=== PATIENT | female | born 1980 | race African-American/Black ===

== ENCOUNTER 2022-04-02 10:59 | Emergency (ER) | payer SELFPAY ==
[~2022-04-02] VITALS: Ht 170.2 cm; Wt 102.0 kg
[2022-04-02 11:30] LABS: BASOPHILS % 0.6 % (0.0-2.0); EOSINOPHILS % 1.6 % (0.0-5.0); HEMATOCRIT. 34.9 % (36.0-48.0); HEMOGLOBIN. 11.3 g/dL (12.0-16.0); LYMPHOCYTES % 38.7 % (20.0-50.0); MEAN CORPUSCULAR HEMOGLOBIN 28.6 pg (28.0-32.0); MEAN CORPUSCULAR VOLUME 88.5 fL (81.0-99.0); MEAN PLATELET VOLUME 7.4 fl (7.4-10.4); MONOCYTES % 6.7 % (2.0-8.0); NEUTROPHILS % 52.4 % (40.0-76.0); PLATELET 331 x1000/uL (130-400); RED BLOOD CELL COUNT 3.94 mill/uL (4.2-5.4); RED CELL DISTRIBUTION WIDTH 16.9 % (11.6-14.6)
[2022-04-02 11:36] LABS: CHLORIDE 105 mEq/L (98-107)
[2022-04-02 11:45] LABS: CREATINE KINASE 252 IU/L (26-192); ETHANOL BLOOD 42 mg/dL
[2022-04-02 12:06] VITALS: BP 185/78
[2022-04-02 12:06] LABS: HCG SCREEN NEGATIVE
[2022-04-02] MEDS ORDERED: HALOPERIDOL LACTATE 5MG/ML VIAL IM ONE (12:15)
== END 2022-04-02 13:00 | disposition left against medical advice (07) ==
LOC: EDBD 11:39 → ER 11:39
DX: T50.7X1A Poisoning by analeptics and opioid receptor antagonists, accidental (unintentional), initial encounter (principal); X58.XXXA Exposure to other specified factors, initial encounter
CPT/HCPCS: 36415; 80053; 80307; 80320; 80329; 82550; 82962; 84703; 85025; 93005; 96372; 99291; J1630; G0480

== ENCOUNTER 2022-07-26 21:39 | Emergency (ER) | payer MEDICAID ==
[~2022-07-26] VITALS: Ht 167.6 cm; Wt 82.0 kg
[2022-07-26 21:46] VITALS: BP 164/82
[2022-07-27] MEDS ORDERED: TOPUD MT (02:07)
== END 2022-07-27 02:26 | disposition home or self-care (01) ==
LOC: ER 21:39
DX: M79.646 Pain in unspecified finger(s) (principal); F20.9 Schizophrenia, unspecified; F31.9 Bipolar disorder, unspecified; I10 Essential (primary) hypertension; G40.909 Epilepsy, unspecified, not intractable, without status epilepticus
CPT/HCPCS: 99283

== ENCOUNTER 2022-11-09 04:13 | Emergency (ER) | payer MEDICAID ==
[~2022-11-09] VITALS: Ht 162.6 cm; Wt 82.0 kg
[~2022-11-09 04:13] MED LIST: TOPUD MT
[2022-11-09 04:15] VITALS: BP 127/78
== END 2022-11-09 05:28 | disposition left against medical advice (07) ==
LOC: ER 04:13
DX: Z53.21 Procedure and treatment not carried out due to patient leaving prior to being seen by health care provider (principal)
CPT/HCPCS: 99281

== ENCOUNTER 2023-10-20 17:16 | Emergency (ER) | payer BC, MEDICAID ==
[~2023-10-20] VITALS: Ht 167.6 cm; Wt 104.0 kg
[2023-10-20 17:22] VITALS: O2SAT 100
[2023-10-20 17:25] VITALS: TEMP 98.4
[2023-10-20] MEDS ORDERED: IBUP-2030 MT (19:17)
[2023-10-20] MEDS: ONDANSETRON HCL 4MG/2ML INJ IM STA (19:18)
[2023-10-20] MEDS: ACETAMINOPHEN 325MG TABLET PO STA (19:18)
[2023-10-20 20:45] VITALS: BP 175/103; PULSE 112; RESP 20
[2023-10-20] MEDS: HYDROCODONE/ACETAMINOPHEN 10/325MG TABLET PO ONE (20:45)
[2023-10-20] MEDS: CLONIDINE 0.1MG TABLET PO ONE (20:45)
== END 2023-10-21 01:13 | disposition home or self-care (01) ==
LOC: ER 17:16
DX: S06.0X0A Concussion without loss of consciousness, initial encounter (principal); F32.9 Major depressive disorder, single episode, unspecified; F20.9 Schizophrenia, unspecified; X58.XXXA Exposure to other specified factors, initial encounter; Y93.89 Activity, other specified; Y92.89 Other specified places as the place of occurrence of the external cause; Y99.8 Other external cause status
CPT/HCPCS: 99285; 70450; 70486; 96372; J2405

== ENCOUNTER 2023-12-17 02:32 | Emergency (ER) | payer BC ==
[~2023-12-17] VITALS: Ht 165.1 cm; Wt 126.6 kg
[~2023-12-17 02:32] MED LIST changes: +IBUP-2030 MT
[2023-12-17 03:20] VITALS: BP 170/105; PULSE 99; RESP 14; TEMP 97.3; O2SAT 98
[2023-12-17 03:30] LABS: BASOPHILS % 0.9 % (0.0-2.0); HEMATOCRIT. 41.3 % (36.0-48.0); HEMOGLOBIN. 13.9 g/dL (12.0-16.0); LYMPHOCYTES % 34.9 % (20.0-50.0); MEAN CORPUSCULAR HEMOGLOBIN 31.4 pg (28.0-32.0); MEAN CORPUSCULAR HGB CONC 33.7 g/dL (31.0-37.0); MEAN CORPUSCULAR VOLUME 93.1 fL (81.0-99.0); MEAN PLATELET VOLUME 8.1 fl (7.4-10.4); MONOCYTES % 6.9 % (2.0-8.0); NEUTROPHILS % 56.3 % (40.0-76.0); PLATELET 242 x1000/uL (130-400); RED BLOOD CELL COUNT 4.43 mill/uL (4.2-5.4); RED CELL DISTRIBUTION WIDTH 14.5 % (11.6-14.6); WHITE BLOOD COUNT 8.4 x1000/uL (4.5-11.0)
[2023-12-17 03:55] LABS: HCG SCREEN NEGATIVE
[2023-12-17 04:00] LABS: CHLORIDE 105 mEq/L (98-107); POTASSIUM 4.1 mEq/L (3.5-5.1); SODIUM 138 mEq/L (136-145)
[2023-12-17 04:01] LABS: CALCIUM 10.4 mg/dL (8.7-10.4); CARBON DIOXIDE 25 mEq/L (21-32)
[2023-12-17 04:06] LABS: CREATININE 0.9 mg/dL (0.6-1.0); GLUCOSE 105 mg/dL (70-105); UREA NITROGEN BLOOD 10 mg/dL (9-23)
[2023-12-17 04:07] LABS: ALANINE AMINOTRANSFERASE 12 IU/L (10-49); ASPARTATE AMINOTRANSFERASE 18 IU/L (<34)
[2023-12-17 04:08] LABS: ALBUMIN 4.7 g/dL (3.2-4.8); BILIRUBIN TOTAL 0.3 mg/dL (0.1-1.0); PROTEIN TOTAL 8.2 g/dL (6.0-8.3)
== END 2023-12-17 04:42 | disposition left against medical advice (07) ==
LOC: ER 02:32
DX: R11.2 Nausea with vomiting, unspecified (principal); Z53.21 Procedure and treatment not carried out due to patient leaving prior to being seen by health care provider
CPT/HCPCS: 36415; 80053; 84703; 85025

== ENCOUNTER 2024-03-16 10:00 | Emergency (ER) | payer BC ==
[~2024-03-16] VITALS: Ht 167.6 cm; Wt 95.0 kg
[2024-03-16 10:02] VITALS: O2SAT 99
[2024-03-16 11:00] VITALS: BP 148/68; PULSE 78; RESP 17; TEMP 98.8
== END 2024-03-16 11:10 | disposition home or self-care (01) ==
LOC: ER 10:10
DX: F19.10 Other psychoactive substance abuse, uncomplicated (principal); F32.A Depression, unspecified; I10 Essential (primary) hypertension; Z98.890 Other specified postprocedural states; Z86.59 Personal history of other mental and behavioral disorders
CPT/HCPCS: 99283

== ENCOUNTER 2024-03-26 22:39 | Emergency (ER) | payer BC, MEDICAID ==
[~2024-03-26] VITALS: Ht 172.7 cm; Wt 113.0 kg
[2024-03-26 22:46] VITALS: O2SAT 99
[2024-03-27] MEDS: ACETAMINOPHEN 325MG TABLET PO STA (02:15)
[2024-03-27] MEDS: ONDANSETRON HCL 4MG/2ML INJ IM STA (02:15)
[2024-03-27 02:39] LABS: BASOPHILS % 0.4 % (0.0-2.0); EOSINOPHILS % 1.4 % (0.0-5.0); HEMATOCRIT. 39.2 % (36.0-48.0); HEMOGLOBIN. 12.9 g/dL (12.0-16.0); LYMPHOCYTES % 38.2 % (20.0-50.0); MEAN CORPUSCULAR HGB CONC 32.9 g/dL (31.0-37.0); MEAN CORPUSCULAR VOLUME 94.5 fL (81.0-99.0); MEAN PLATELET VOLUME 7.8 fl (7.4-10.4); MONOCYTES % 6.3 % (2.0-8.0); NEUTROPHILS % 53.7 % (40.0-76.0); PLATELET 250 x1000/uL (130-400); RED BLOOD CELL COUNT 4.15 mill/uL (4.2-5.4); RED CELL DISTRIBUTION WIDTH 14.3 % (11.6-14.6); WHITE BLOOD COUNT 7.6 x1000/uL (4.5-11.0)
[2024-03-27 02:48] LABS: CLARITY URINE CLEAR (CLEAR); COLOR URINE YELLOW (YELLOW); GLUCOSE URINE NEGATIVE (NEGATIVE); KETONES URINE NEGATIVE (NEGATIVE); LEUKOCYTE ESTERASE URINE NEGATIVE (NEGATIVE); NITRITE URINE NEGATIVE (NEGATIVE); OCCULT BLOOD URINE 1+ (NEGATIVE); PROTEIN URINE NEGATIVE (NEGATIVE); SPECIFIC GRAVITY URINE 1.005 (1.005-1.030); UROBILINOGEN URINE 0.2 E.U./dL (0.2-1.0)
[2024-03-27 02:49] LABS: CHLORIDE 106 mEq/L (98-107); POTASSIUM 4.1 mEq/L (3.5-5.1); SODIUM 138 mEq/L (136-145)
[2024-03-27 02:50] LABS: CALCIUM 9.1 mg/dL (8.7-10.4); CARBON DIOXIDE 31 mEq/L (21-32)
[2024-03-27 02:55] LABS: GLUCOSE 97 mg/dL (70-105); UREA NITROGEN BLOOD 7 mg/dL (9-23)
[2024-03-27 03:06] LABS: BACTERIA URINE NONE SEEN; RBC URINE NONE SEEN /hpf (0-2); SQUAMOUS EPITHELIAL CELL URINE NONE SEEN /lpf (RARE/1+); WBC URINE 0-2 /hpf (0-2)
[2024-03-27] MEDS ORDERED: NAPR-681 PO (03:20)
[2024-03-27 04:03] VITALS: BP 125/76; PULSE 92; RESP 18; TEMP 37.00296; O2SAT 99
== END 2024-03-27 04:04 | disposition home or self-care (01) ==
LOC: ER 22:39
DX: R51.9 Headache, unspecified (principal); R10.9 Unspecified abdominal pain; F32.A Depression, unspecified; I10 Essential (primary) hypertension; Z98.890 Other specified postprocedural states
CPT/HCPCS: 99283; 80048; 81003; 81025; 83690; 85025; 36415; 96372; J2405

== ENCOUNTER 2024-05-20 11:27 | Emergency (ER) | payer MEDICAID ==
[~2024-05-20] VITALS: Ht 165.1 cm; Wt 124.0 kg
[~2024-05-20 11:27] MED LIST changes: +NAPR-681 PO
[2024-05-20 11:29] VITALS: O2SAT 99
[2024-05-20 11:37] VITALS: BP 182/90; PULSE 92; RESP 16; TEMP 98; O2SAT 99
[2024-05-20] MEDS ORDERED: LISI20TA31 MT (11:39)
[2024-05-20] MEDS ORDERED: LABE100T9 MT (11:39)
[2024-05-20] MEDS ORDERED: AMLO5TAB88 MT (11:39)
== END 2024-05-20 11:47 | disposition home or self-care (01) ==
LOC: ER 11:27
DX: I10 Essential (primary) hypertension (principal); F32.A Depression, unspecified; Z98.890 Other specified postprocedural states; Z76.0 Encounter for issue of repeat prescription; Z79.899 Other long term (current) drug therapy
CPT/HCPCS: 99281

== ENCOUNTER 2024-06-20 19:15 | Emergency (ER) | payer BC, MEDICAID ==
[~2024-06-20] VITALS: Ht 167.6 cm; Wt 82.0 kg
[~2024-06-20 19:15] MED LIST changes: +AMLO5TAB88 MT; +LABE100T9 MT; +LISI20TA31 MT
[2024-06-20 19:22] VITALS: O2SAT 98
[2024-06-20 21:11] LABS: *AMPHETAMINES SCREEN URINE PRESUMPTIVE POSITIVE (NEGATIVE); *BENZODIAZEPINES SCREEN URINE NEGATIVE (NEGATIVE)
[2024-06-20 21:11] LABS: BASOPHILS % 0.5 % (0.0-2.0); EOSINOPHILS % 0.4 % (0.0-5.0); HEMATOCRIT. 31.4 % (36.0-48.0); HEMOGLOBIN. 10.5 g/dL (12.0-16.0); LYMPHOCYTES % 34.1 % (20.0-50.0); MEAN CORPUSCULAR HEMOGLOBIN 31.4 pg (28.0-32.0); MEAN CORPUSCULAR HGB CONC 33.5 g/dL (31.0-37.0); MEAN CORPUSCULAR VOLUME 93.7 fL (81.0-99.0); MEAN PLATELET VOLUME 7.6 fl (7.4-10.4); MONOCYTES % 7.6 % (2.0-8.0); NEUTROPHILS % 57.4 % (40.0-76.0); PLATELET 379 x1000/uL (130-400); RED BLOOD CELL COUNT 3.35 mill/uL (4.2-5.4); RED CELL DISTRIBUTION WIDTH 13.4 % (11.6-14.6); WHITE BLOOD COUNT 6.4 x1000/uL (4.5-11.0)
[2024-06-20 21:12] LABS: *BARBITURATES SCREEN URINE NEGATIVE (NEGATIVE); *COCAINE SCREEN URINE NEGATIVE (NEGATIVE); CANNABINOID URINE SCREEN PRESUMPTIVE POSITIVE (NEGATIVE); METHADONE URINE SCREEN NEGATIVE (NEGATIVE); OPIATES URINE SCREEN NEGATIVE (NEGATIVE); PHENCYCLIDINE URINE SCREEN NEGATIVE (NEGATIVE)
[2024-06-20 21:13] LABS: CHLORIDE 109 mEq/L (98-107); POTASSIUM 3.7 mEq/L (3.5-5.1); SODIUM 140 mEq/L (136-145)
[2024-06-20 21:13] LABS: CLARITY URINE CLEAR (CLEAR); COLOR URINE YELLOW (YELLOW); ECSTASY MDMA SCREEN URINE CONF.TEST INDICATED (NEGATIVE); GLUCOSE URINE NEGATIVE (NEGATIVE); KETONES URINE NEGATIVE (NEGATIVE); LEUKOCYTE ESTERASE URINE 3+ (NEGATIVE); NITRITE URINE NEGATIVE (NEGATIVE); OCCULT BLOOD URINE 3+ (NEGATIVE); PH URINE 6.5 (4.5-8.0); PROTEIN URINE NEGATIVE (NEGATIVE); SPECIFIC GRAVITY URINE 1.012 (1.005-1.030); UROBILINOGEN URINE 0.2 E.U./dL (0.2-1.0)
[2024-06-20 21:14] LABS: CARBON DIOXIDE 25 mEq/L (21-32)
[2024-06-20 21:15] LABS: CALCIUM 9.2 mg/dL (8.7-10.4)
[2024-06-20 21:19] LABS: CREATININE 0.9 mg/dL (0.6-1.0); GLUCOSE 105 mg/dL (70-105); UREA NITROGEN BLOOD 6 mg/dL (9-23)
[2024-06-20 21:20] LABS: ETHANOL BLOOD < 10 mg/dL (<10)
[2024-06-20 21:43] LABS: BACTERIA URINE 1+; SQUAMOUS EPITHELIAL CELL URINE 1+ /lpf (RARE/1+)
[2024-06-20 22:14] LABS: HCG SCREEN NEGATIVE
[2024-06-20] MEDS ORDERED: DIVALPROEX SODIUM 250MG ER TABLET PO ONE (22:30)
[2024-06-20] MEDS ORDERED: AMLODIPINE 10MG TABLET PO ONE (22:30)
[2024-06-20] MEDS ORDERED: QUETIAPINE FUMARATE 25MG TABLET PO SCH (22:30)
[2024-06-20] MEDS: DIVALPROEX SODIUM 250MG ER TABLET PO NR (23:26)
[2024-06-20] MEDS: AMLODIPINE 5MG TABLET PO NR (23:27)
[2024-06-20] MEDS: QUETIAPINE FUMARATE 50MG TABLET PO NR (23:29)
[2024-06-20] MEDS: NITROFURANTOIN 100MG M/M CAPSULE PO NR (23:29)
[2024-06-21] MEDS: DIVALPROEX SODIUM 500MG DR TABLET PO SCH (09:00)
[2024-06-21] MEDS: LABETALOL HCL 100MG TABLET PO ONE (09:00)
[2024-06-21] MEDS: LISINOPRIL 20MG TABLET PO SCH (09:00)
[2024-06-21] MEDS: AMLODIPINE 5MG TABLET PO SCH (12:30)
[2024-06-21] MEDS: NITROFURANTOIN 100MG M/M CAPSULE PO SCH (12:30)
[2024-06-21] MEDS ORDERED: LISI20TA31 MT (17:00)
[2024-06-21] MEDS ORDERED: NITR-87 MT (17:00)
[2024-06-21] MEDS ORDERED: AMLO5TAB88 MT (17:00)
[2024-06-21 17:12] VITALS: BP 142/78; PULSE 82; RESP 16; TEMP 37.11408; O2SAT 99
[2024-06-21] MEDS ORDERED: DIVALPROEX SODIUM 500MG DR TABLET PO SCH (21:00)
[2024-06-21] MEDS ORDERED: QUETIAPINE FUMARATE 50MG TABLET PO SCH (21:00)
== END 2024-06-21 18:06 | disposition home or self-care (01) ==
LOC: ER 19:15
DX: R45.851 Suicidal ideations (principal); I10 Essential (primary) hypertension; F32.A Depression, unspecified; F17.200 Nicotine dependence, unspecified, uncomplicated; F12.10 Cannabis abuse, uncomplicated; F15.10 Other stimulant abuse, uncomplicated; Z20.822 Contact with and (suspected) exposure to COVID-19; Z79.899 Other long term (current) drug therapy; Z86.59 Personal history of other mental and behavioral disorders
CPT/HCPCS: 80305; 80048; 81003; 80307; 80329; 80320; 84703; 85025; 36415; 99285; 87426; Z7610 ×2; G0480

== ENCOUNTER 2024-06-23 19:42 | Emergency (ER) | payer BC ==
[~2024-06-23] VITALS: Ht 165.1 cm; Wt 72.0 kg
[~2024-06-23 19:42] MED LIST changes: +NITR-87 MT
[2024-06-23 19:50] VITALS: TEMP 98.8; O2SAT 100
[2024-06-23] MEDS: MAGNESIUM/ALUMINUM HYDROXIDE/SIMETHICONE 30ML UDC PO ONE (20:50)
[2024-06-23 21:21] LABS: BASOPHILS % 0.6 % (0.0-2.0); EOSINOPHILS % 0.7 % (0.0-5.0); HEMATOCRIT. 34.8 % (36.0-48.0); HEMOGLOBIN. 11.4 g/dL (12.0-16.0); LYMPHOCYTES % 45.8 % (20.0-50.0); MEAN CORPUSCULAR HEMOGLOBIN 30.4 pg (28.0-32.0); MEAN CORPUSCULAR HGB CONC 32.8 g/dL (31.0-37.0); MEAN CORPUSCULAR VOLUME 92.8 fL (81.0-99.0); MEAN PLATELET VOLUME 7.4 fl (7.4-10.4); MONOCYTES % 5.6 % (2.0-8.0); NEUTROPHILS % 47.3 % (40.0-76.0); PLATELET 392 x1000/uL (130-400); RED BLOOD CELL COUNT 3.75 mill/uL (4.2-5.4); RED CELL DISTRIBUTION WIDTH 13.9 % (11.6-14.6); WHITE BLOOD COUNT 6.5 x1000/uL (4.5-11.0)
[2024-06-23 21:22] LABS: CHLORIDE 109 mEq/L (98-107); POTASSIUM 3.9 mEq/L (3.5-5.1); SODIUM 139 mEq/L (136-145)
[2024-06-23 21:23] LABS: CARBON DIOXIDE 25 mEq/L (21-32)
[2024-06-23 21:25] LABS: INR 0.9; PROTHROMBIN TIME 10.5 sec (9.6-11.0)
[2024-06-23 21:26] LABS: HCG SCREEN NEGATIVE
[2024-06-23 21:28] LABS: CREATININE 0.9 mg/dL (0.6-1.0); GLUCOSE 103 mg/dL (70-105); TROPONIN I HIGH SENSITIVITY 22 ng/L (3.0-34); UREA NITROGEN BLOOD 8 mg/dL (9-23)
[2024-06-23 21:30] LABS: ALANINE AMINOTRANSFERASE 11 IU/L (10-49); ALBUMIN 4.1 g/dL (3.2-4.8); ASPARTATE AMINOTRANSFERASE 12 IU/L (<34); BILIRUBIN DIRECT < 0.1 mg/dL (<=3.0); BILIRUBIN TOTAL 0.2 mg/dL (0.1-1.0); PROTEIN TOTAL 7.6 g/dL (6.0-8.3)
[2024-06-23 23:26] LABS: TROPONIN I HIGH SENSITIVITY 22 ng/L (3.0-34)
[2024-06-24] MEDS ORDERED: ONDA-239 PO (00:03)
[2024-06-24 00:39] VITALS: BP 140/81; PULSE 97; RESP 20; O2SAT 100
[2024-06-24] MEDS ORDERED: CEFP100T8 MT (09:36)
== END 2024-06-24 00:40 | disposition home or self-care (01) ==
LOC: ER 19:42
DX: K29.70 Gastritis, unspecified, without bleeding (principal); I10 Essential (primary) hypertension; F32.A Depression, unspecified; F12.90 Cannabis use, unspecified, uncomplicated; F15.90 Other stimulant use, unspecified, uncomplicated; Z98.890 Other specified postprocedural states; Z79.899 Other long term (current) drug therapy
CPT/HCPCS: 36415; 71045; 80048; 80076; 84484; 84703; 85025; 93005; 99285

== ENCOUNTER 2024-06-24 01:48 | Emergency (ER) | payer BC ==
[~2024-06-24] VITALS: Ht 167.6 cm; Wt 108.2 kg
[~2024-06-24 01:48] MED LIST changes: +ONDA-239 PO
[2024-06-24 02:08] VITALS: O2SAT 98
[2024-06-24 02:24] LABS: CHLORIDE 107 mEq/L (98-107); POTASSIUM 4.2 mEq/L (3.5-5.1); SODIUM 141 mEq/L (136-145)
[2024-06-24 02:25] LABS: CALCIUM 9.3 mg/dL (8.7-10.4); CARBON DIOXIDE 26 mEq/L (21-32)
[2024-06-24 02:30] LABS: CREATININE 1.2 mg/dL (0.6-1.0); GLUCOSE 134 mg/dL (70-105); UREA NITROGEN BLOOD 10 mg/dL (9-23)
[2024-06-24 02:32] LABS: ACETAMINOPHEN < 2 ug/mL (10-30)
[2024-06-24 04:10] LABS: BASOPHILS % 0.5 % (0.0-2.0); HEMATOCRIT. 36.7 % (36.0-48.0); HEMOGLOBIN. 12.4 g/dL (12.0-16.0); LYMPHOCYTES % 46.8 % (20.0-50.0); MEAN CORPUSCULAR HEMOGLOBIN 31.2 pg (28.0-32.0); MEAN CORPUSCULAR HGB CONC 33.7 g/dL (31.0-37.0); MEAN CORPUSCULAR VOLUME 92.5 fL (81.0-99.0); MEAN PLATELET VOLUME 7.6 fl (7.4-10.4); MONOCYTES % 5.9 % (2.0-8.0); NEUTROPHILS % 45.8 % (40.0-76.0); PLATELET 428 x1000/uL (130-400); RED BLOOD CELL COUNT 3.96 mill/uL (4.2-5.4); RED CELL DISTRIBUTION WIDTH 14.2 % (11.6-14.6); WHITE BLOOD COUNT 7.6 x1000/uL (4.5-11.0)
[2024-06-24 04:14] LABS: ETHANOL BLOOD < 10 mg/dL (<10)
[2024-06-24 04:19] VITALS: BP 139/88; PULSE 62; RESP 18; TEMP 36.72516; O2SAT 97
[2024-06-24 08:18] LABS: HCG SCREEN NEGATIVE
[2024-06-24 08:57] LABS: CLARITY URINE TURBID (CLEAR); COLOR URINE ORANGE (YELLOW); GLUCOSE URINE NEGATIVE (NEGATIVE); KETONES URINE NEGATIVE (NEGATIVE); LEUKOCYTE ESTERASE URINE TRACE (NEGATIVE); NITRITE URINE NEGATIVE (NEGATIVE); OCCULT BLOOD URINE 3+ (NEGATIVE); PH URINE 5.5 (4.5-8.0); PROTEIN URINE 2+ (NEGATIVE); UROBILINOGEN URINE 0.2 E.U./dL (0.2-1.0)
[2024-06-24 09:24] LABS: SQUAMOUS EPITHELIAL CELL URINE 2+ /lpf (RARE/1+)
[2024-06-24 09:25] LABS: BACTERIA URINE 4+; YEAST URINE NONE SEEN
[2024-06-24 09:26] LABS: MUCUS URINE TRACE /lpf (< = 2+)
[2024-06-24 09:33] LABS: *AMPHETAMINES SCREEN URINE PRESUMPTIVE POSITIVE (NEGATIVE); *BARBITURATES SCREEN URINE NEGATIVE (NEGATIVE); *BENZODIAZEPINES SCREEN URINE NEGATIVE (NEGATIVE); *COCAINE SCREEN URINE NEGATIVE (NEGATIVE)
[2024-06-24 09:34] LABS: CANNABINOID URINE SCREEN NEGATIVE (NEGATIVE); ECSTASY MDMA SCREEN URINE CONF.TEST INDICATED (NEGATIVE); METHADONE URINE SCREEN NEGATIVE (NEGATIVE); OPIATES URINE SCREEN NEGATIVE (NEGATIVE); PHENCYCLIDINE URINE SCREEN NEGATIVE (NEGATIVE)
[2024-06-24] MEDS ORDERED: CEFP100T8 MT (09:36)
== END 2024-06-24 10:20 | disposition home or self-care (01) ==
LOC: ER 01:48
DX: R45.851 Suicidal ideations (principal); N39.0 Urinary tract infection, site not specified; F32.A Depression, unspecified; F20.9 Schizophrenia, unspecified; J45.909 Unspecified asthma, uncomplicated; I10 Essential (primary) hypertension; Z79.899 Other long term (current) drug therapy
CPT/HCPCS: 36415; 80048; 80305; 80307; 80320; 80329; 81003; 84703; 85025; 99285; G0480

== ENCOUNTER 2024-07-02 21:09 | Emergency (ER) | payer BC, MEDICAID ==
[~2024-07-02] VITALS: Ht 167.6 cm; Wt 100.0 kg
[~2024-07-02 21:09] MED LIST changes: +CEFP100T8 MT
[2024-07-02 23:45] LABS: CLARITY URINE CLOUDY (CLEAR); COLOR URINE ORANGE (YELLOW); GLUCOSE URINE NEGATIVE (NEGATIVE); KETONES URINE TRACE (NEGATIVE); LEUKOCYTE ESTERASE URINE 1+ (NEGATIVE); NITRITE URINE NEGATIVE (NEGATIVE); OCCULT BLOOD URINE 3+ (NEGATIVE); PH URINE 5.5 (4.5-8.0); PROTEIN URINE 2+ (NEGATIVE)
[2024-07-02 23:57] LABS: *AMPHETAMINES SCREEN URINE PRESUMPTIVE POSITIVE (NEGATIVE); *BARBITURATES SCREEN URINE NEGATIVE (NEGATIVE); *BENZODIAZEPINES SCREEN URINE NEGATIVE (NEGATIVE); *COCAINE SCREEN URINE PRESUMPTIVE POSITIVE (NEGATIVE); CANNABINOID URINE SCREEN PRESUMPTIVE POSITIVE (NEGATIVE); ECSTASY MDMA SCREEN URINE CONF.TEST INDICATED (NEGATIVE); METHADONE URINE SCREEN NEGATIVE (NEGATIVE); OPIATES URINE SCREEN NEGATIVE (NEGATIVE); PHENCYCLIDINE URINE SCREEN NEGATIVE (NEGATIVE)
[2024-07-03 01:17] LABS: SQUAMOUS EPITHELIAL CELL URINE 3+ /lpf (RARE/1+)
[2024-07-03 01:19] LABS: RBC URINE TNTC /hpf (0-2)
[2024-07-03 01:23] LABS: BACTERIA URINE 1+; FINE GRANULAR CASTS URINE 0-5 /lpf
[2024-07-03 02:29] LABS: CHLORIDE 109 mEq/L (98-107); POTASSIUM 3.7 mEq/L (3.5-5.1); SODIUM 142 mEq/L (136-145)
[2024-07-03 02:30] LABS: CARBON DIOXIDE 26 mEq/L (21-32)
[2024-07-03 02:31] LABS: CALCIUM 9.5 mg/dL (8.7-10.4)
[2024-07-03 02:35] LABS: CREATININE 1.1 mg/dL (0.6-1.0)
[2024-07-03 02:36] LABS: GLUCOSE 118 mg/dL (70-105); UREA NITROGEN BLOOD 19 mg/dL (9-23)
[2024-07-03 02:38] LABS: ACETAMINOPHEN < 2 ug/mL (10-30)
[2024-07-03 03:14] LABS: ETHANOL BLOOD < 10 mg/dL (<10)
[2024-07-03 03:48] LABS: BASOPHILS % 0.3 % (0.0-2.0); EOSINOPHILS % 0.7 % (0.0-5.0); HEMATOCRIT. 32.1 % (36.0-48.0); HEMOGLOBIN. 10.7 g/dL (12.0-16.0); LYMPHOCYTES % 50.3 % (20.0-50.0); MEAN CORPUSCULAR HEMOGLOBIN 30.4 pg (28.0-32.0); MEAN CORPUSCULAR HGB CONC 33.5 g/dL (31.0-37.0); MEAN CORPUSCULAR VOLUME 90.9 fL (81.0-99.0); MEAN PLATELET VOLUME 8.2 fl (7.4-10.4); MONOCYTES % 5.3 % (2.0-8.0); NEUTROPHILS % 43.4 % (40.0-76.0); PLATELET 267 x1000/uL (130-400); RED BLOOD CELL COUNT 3.53 mill/uL (4.2-5.4); RED CELL DISTRIBUTION WIDTH 13.9 % (11.6-14.6); WHITE BLOOD COUNT 6.4 x1000/uL (4.5-11.0)
[2024-07-03 10:37] VITALS: O2SAT 100
[2024-07-03] MEDS: OLANZAPINE 5MG TABLET PO SCH (11:56)
[2024-07-03] MEDS: NITROFURANTOIN 100MG M/M CAPSULE PO SCH (11:57)
[2024-07-03] MEDS: AMLODIPINE 5MG TABLET PO SCH (15:30)
[2024-07-03] MEDS ORDERED: NITR-87 MT (16:12)
[2024-07-03 16:24] VITALS: BP 151/91; PULSE 80; RESP 20; TEMP 36.94740; O2SAT 100
[2024-07-03] MEDS ORDERED: METFORMIN HCL 500MG TABLET PO SCH (17:00)
== END 2024-07-03 16:22 ==
LOC: ER 21:09
DX: R45.851 Suicidal ideations (principal); F20.9 Schizophrenia, unspecified; E11.9 Type 2 diabetes mellitus without complications; F17.200 Nicotine dependence, unspecified, uncomplicated; I10 Essential (primary) hypertension; Z79.899 Other long term (current) drug therapy; F19.90 Other psychoactive substance use, unspecified, uncomplicated; Z59.00 Homelessness unspecified; Z20.822 Contact with and (suspected) exposure to COVID-19
CPT/HCPCS: 36415; 80048; 80305; 80307; 80320; 80329; 81003; 81025; 85025; 87426; 99285; G0480

== ENCOUNTER 2024-09-05 16:04 | Emergency (ER) | payer BC ==
[~2024-09-05] VITALS: Ht 165.1 cm; Wt 99.7 kg
[2024-09-05 16:07] VITALS: O2SAT 98
[2024-09-05 16:23] VITALS: BP 213/107; PULSE 105; RESP 16; TEMP 98.3; O2SAT 98
== END 2024-09-05 20:16 | disposition left against medical advice (07) ==
LOC: ER 16:04
DX: R68.89 Other general symptoms and signs (principal); Z53.21 Procedure and treatment not carried out due to patient leaving prior to being seen by health care provider

== ENCOUNTER 2024-09-10 02:46 | Emergency (ER) | payer BC ==
[~2024-09-10] VITALS: Ht 167.6 cm; Wt 100.0 kg
[2024-09-10 02:49] VITALS: O2SAT 100
[2024-09-10] MEDS: ONDANSETRON HCL 4MG TABLET PO ONE (04:46)
[2024-09-10 04:47] VITALS: BP 173/84; PULSE 98; RESP 14; TEMP 36.6; O2SAT 100
[2024-09-10] MEDS: ACETAMINOPHEN 325MG TABLET PO ONE (04:47)
[2024-09-10] MEDS ORDERED: LISI20TA31 MT (04:56)
[2024-09-10] MEDS ORDERED: AMLO5TAB5 MT (04:56)
[2024-09-10] MEDS ORDERED: LABE100T9 MT (04:56)
== END 2024-09-10 05:15 | disposition home or self-care (01) ==
LOC: ER 02:46
DX: F19.10 Other psychoactive substance abuse, uncomplicated (principal); I10 Essential (primary) hypertension; Z86.59 Personal history of other mental and behavioral disorders; Z79.899 Other long term (current) drug therapy
CPT/HCPCS: 99283; Q0162

== ENCOUNTER 2024-09-26 19:36 | Emergency (ER) | payer MEDICAID, BC ==
[~2024-09-26] VITALS: Ht 175.3 cm; Wt 130.0 kg
[~2024-09-26 19:36] MED LIST changes: +AMLO5TAB5 MT
[2024-09-26 19:39] VITALS: O2SAT 98
[2024-09-26 23:45] LABS: BASOPHILS % 0.5 % (0.0-2.0); EOSINOPHILS % 1.7 % (0.0-5.0); HEMATOCRIT. 36.7 % (36.0-48.0); LYMPHOCYTES % 37.7 % (20.0-50.0); MEAN CORPUSCULAR HEMOGLOBIN 28.3 pg (28.0-32.0); MEAN CORPUSCULAR HGB CONC 32.7 g/dL (31.0-37.0); MEAN CORPUSCULAR VOLUME 86.4 fL (81.0-99.0); MONOCYTES % 5.7 % (2.0-8.0); NEUTROPHILS % 54.4 % (40.0-76.0); PLATELET 236 x1000/uL (130-400); RED BLOOD CELL COUNT 4.24 mill/uL (4.2-5.4); RED CELL DISTRIBUTION WIDTH 19.2 % (11.6-14.6); WHITE BLOOD COUNT 8.1 x1000/uL (4.5-11.0)
[2024-09-26 23:55] LABS: CHLORIDE 105 mEq/L (98-107); SODIUM 139 mEq/L (136-145)
[2024-09-26 23:56] LABS: CARBON DIOXIDE 30 mEq/L (21-32)
[2024-09-27 00:01] LABS: CREATININE 1.1 mg/dL (0.6-1.0); GLUCOSE 104 mg/dL (70-105); UREA NITROGEN BLOOD 13 mg/dL (9-23)
[2024-09-27 00:03] LABS: ACETAMINOPHEN < 2 ug/mL (10-30)
[2024-09-27 07:17] LABS: HCG SCREEN NEGATIVE
[2024-09-27 08:24] LABS: CLARITY URINE CLOUDY (CLEAR); COLOR URINE YELLOW (YELLOW); GLUCOSE URINE NEGATIVE (NEGATIVE); KETONES URINE NEGATIVE (NEGATIVE); LEUKOCYTE ESTERASE URINE NEGATIVE (NEGATIVE); NITRITE URINE NEGATIVE (NEGATIVE); OCCULT BLOOD URINE NEGATIVE (NEGATIVE); PROTEIN URINE NEGATIVE (NEGATIVE); SPECIFIC GRAVITY URINE 1.008 (1.005-1.030); UROBILINOGEN URINE 0.2 E.U./dL (0.2-1.0)
[2024-09-27 08:51] LABS: BACTERIA URINE 1+; SQUAMOUS EPITHELIAL CELL URINE 2+ /lpf (RARE/1+)
[2024-09-27 08:52] LABS: TRICHOMONAS URINE FEW; WBC URINE 0-2 /hpf (0-2)
[2024-09-27 08:53] LABS: RBC URINE NONE SEEN /hpf (0-2)
[2024-09-27 08:57] LABS: *AMPHETAMINES SCREEN URINE PRESUMPTIVE POSITIVE (NEGATIVE); *BARBITURATES SCREEN URINE NEGATIVE (NEGATIVE); *BENZODIAZEPINES SCREEN URINE NEGATIVE (NEGATIVE); *COCAINE SCREEN URINE NEGATIVE (NEGATIVE); CANNABINOID URINE SCREEN PRESUMPTIVE POSITIVE (NEGATIVE); ECSTASY MDMA SCREEN URINE CONF.TEST INDICATED (NEGATIVE); METHADONE URINE SCREEN NEGATIVE (NEGATIVE); OPIATES URINE SCREEN NEGATIVE (NEGATIVE); PHENCYCLIDINE URINE SCREEN PRESUMTIVE POSITIVE (NEGATIVE)
[2024-09-28] MEDS: ACETAMINOPHEN 325MG TABLET PO ONE (01:44)
[2024-09-28 09:43] VITALS: BP 124/82; PULSE 80; RESP 18; TEMP 36.9; O2SAT 100
[2024-09-28] MEDS ORDERED: QUETIAPINE FUMARATE 50MG TABLET PO SCH (21:00)
== END 2024-09-28 10:48 | disposition home or self-care (01) ==
LOC: ER 19:36
DX: R45.851 Suicidal ideations (principal); I10 Essential (primary) hypertension; Z20.822 Contact with and (suspected) exposure to COVID-19; Z79.899 Other long term (current) drug therapy; Z86.59 Personal history of other mental and behavioral disorders
CPT/HCPCS: 36415; 80048; 80305; 80307; 80320; 80329; 81003; 84703; 85025; 87426; 99285; G0480

== ENCOUNTER 2025-01-01 11:13 | Emergency (ER) | payer MEDICAID ==
[~2025-01-01] VITALS: Ht 165.1 cm; Wt 110.0 kg
[2025-01-01] MEDS: KETOROLAC 30MG/ML VIAL IM ONE (12:43)
[2025-01-01] MEDS: PREDNISONE 20MG TABLET PO STA (12:43)
[2025-01-01 12:54] VITALS: PULSE 90; RESP 17; O2SAT 96
[2025-01-01] MEDS: ALBUTEROL (0.083%) 2.5MG/3ML NEB HHN STA (12:54)
[2025-01-01] MEDS: IPRATROPIUM BROMIDE (0.02%) 0.5MG/2.5ML NEB HHN STA (12:54)
[2025-01-01] MEDS ORDERED: BENZ100C86 MT (14:11)
[2025-01-01] MEDS ORDERED: KETO10TA2 MT (14:11)
[2025-01-01] MEDS ORDERED: ALBU18HF2 IH (14:11)
[2025-01-01 14:39] VITALS: BP 152/89; PULSE 89; RESP 17; TEMP 36.6; O2SAT 96
== END 2025-01-01 14:42 | disposition home or self-care (01) ==
LOC: ER 11:13
DX: J06.9 Acute upper respiratory infection, unspecified (principal); M54.42 Lumbago with sciatica, left side; M54.41 Lumbago with sciatica, right side; J45.909 Unspecified asthma, uncomplicated; E11.9 Type 2 diabetes mellitus without complications; I10 Essential (primary) hypertension; F20.9 Schizophrenia, unspecified; Z79.899 Other long term (current) drug therapy
CPT/HCPCS: 81025; 94640; 96372; 99283; J7512; J1885; Z7610 ×3; 94070